=== PATIENT | female | born 1995 | race African-American/Black ===

== ENCOUNTER 2018-10-23 16:07 | Emergency (ER) | payer OTHER ==
[~2018-10-23] VITALS: Ht 165.1 cm; Wt 70.0 kg
[2018-10-23] MEDS ORDERED: LORAZEPAM 1MG TABLET PO ONE (17:30)
[2018-10-23 17:39] LABS: BASOPHILS % 1.7 % (0.0-2.0); EOSINOPHILS % 1.7 % (0.0-5.0); HEMATOCRIT. 35.6 % (36.0-48.0); HEMOGLOBIN. 11.4 g/dL (12.0-16.0); LYMPHOCYTES % 18.3 % (20.0-50.0); MEAN CORPUSCULAR HEMOGLOBIN 24.6 pg (28.0-32.0); MEAN CORPUSCULAR VOLUME 76.8 fL (81.0-99.0); MEAN PLATELET VOLUME 9.6 fl (7.4-10.4); MONOCYTES % 8.4 % (2.0-8.0); NEUTROPHILS % 69.9 % (40.0-76.0); PLATELET 222 x1000/uL (130-400); RED BLOOD CELL COUNT 4.64 mill/uL (4.2-5.4); RED CELL DISTRIBUTION WIDTH 17.5 % (11.6-14.6)
[2018-10-23 17:46] LABS: CHLORIDE 106 mEq/L (98-107)
[2018-10-23 17:49] LABS: ETHANOL BLOOD < 10 mg/dL
[2018-10-23 17:58] LABS: HCG SCREEN NEGATIVE
[2018-10-23] MEDS ORDERED: POTASSIUM CHLORIDE 20MEQ TABLET SR PO ONE (18:00)
[2018-10-23] MEDS ORDERED: ALBUTEROL (0.083%) 2.5MG/3ML NEB HHN STA (19:34)
[2018-10-23] MEDS ORDERED: IPRATROPIUM BROMIDE (0.02%) 0.5MG/2.5ML NEB HHN STA (19:34)
[2018-10-24 01:57] LABS: METHADONE URINE SCREEN NEGATIVE (NEGATIVE); OPIATES URINE SCREEN NEGATIVE (NEGATIVE)
[2018-10-24 01:58] LABS: *AMPHETAMINES SCREEN URINE NEGATIVE (NEGATIVE); *BARBITURATES SCREEN URINE NEGATIVE (NEGATIVE); *BENZODIAZEPINES SCREEN URINE NEGATIVE (NEGATIVE); *COCAINE SCREEN URINE NEGATIVE (NEGATIVE); PHENCYCLIDINE URINE SCREEN NEGATIVE (NEGATIVE)
[2018-10-24 02:25] LABS: CANNABINOID URINE SCREEN PRESUMTIVE POSITIVE (NEGATIVE)
[2018-10-24] MEDS ORDERED: LORAZEPAM 1MG TABLET PO NR (13:02)
[2018-10-24 17:03] VITALS: BP 126/78
== END 2018-10-24 17:14 ==
LOC: ER 16:07
DX: F33.3 Major depressive disorder, recurrent, severe with psychotic symptoms (principal); R45.851 Suicidal ideations; F41.8 Other specified anxiety disorders; R06.2 Wheezing; F12.90 Cannabis use, unspecified, uncomplicated; D64.9 Anemia, unspecified; E87.6 Hypokalemia
CPT/HCPCS: 36415; 80048; 80305; 80307; 80329; 81025; 84703; 85025; 94640; 99285; G0482; J7611